=== PATIENT | female | born 2005 | race American Indian/Alaskan Native ===

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

== ENCOUNTER 2023-02-21 17:33 | Emergency (ER) | payer MEDICAID ==
[2023-02-21] MEDS ORDERED: Sertraline 50 MG Tab PO ONE (18:32)
[2023-02-21] MEDS ORDERED: QUEtiapine 25 MG Tab PO ONE (18:32)
[2023-02-21 20:11] VITALS: BP 119/75; PULSE 94
== END 2023-02-21 18:57 | disposition home or self-care (01) ==
LOC: JP.ED 17:33
DX: F19.10 Other psychoactive substance abuse, uncomplicated (principal); F32.9 Major depressive disorder, single episode, unspecified; F41.9 Anxiety disorder, unspecified; F17.210 Nicotine dependence, cigarettes, uncomplicated; Z91.09 Other allergy status, other than to drugs and biological substances; Z88.8 Allergy status to other drugs, medicaments and biological substances
CPT/HCPCS: 99283; A9270